=== PATIENT | female | born 1995 | race Caucasian/White ===

== ENCOUNTER 2022-08-30 10:21 | Outpatient (CLI) | payer OTHER, SELFPAY ==
[2022-08-30 11:00] LABS: Basophils Percent Auto 0.3 % (0.2-1.2); Eosinophils Absolute Auto 0.1 K/mm3 (0-0.3); Hematocrit 32.9 % (37.0-47.0); Hemoglobin 10.8 g/dL (12.0-15.0); Immature Granulocyte Absolute 0.08 K/mm3 (0.00-0.031); Immature Granulocyte Percent A 0.7 % (0-0.5); Lymphocytes Absolute Auto 1.57 K/mm3 (0.9-3.2); Lymphocytes Percent Auto 12.8 % (18.3-44.2); Mean Corpuscular HGB Conc 32.8 g/dl (32-36); Mean Corpuscular Hemoglobin 26.7 pg (26-34); Mean Corpuscular Volume 81.4 fl (80-100); Mean Platelet Volume 11.6 fl (7.4-10.4); Monocytes Absolute Auto 0.7 K/mm3 (0.1-0.6); Monocytes Percent Auto 5.6 % (2.6-8.5); Neutrophils Absolute Auto 9.7 K/mm3 (1.3-6.7); Neutrophils Percent Auto 79.6 % (45.5-73.1); Platelet Count Result 205 k/mm3 (150-375); Red Blood Count 4.04 M/mm3 (4.2-5.4); Red Cell Distribution Width 13.9 % (11.5-14.5); White Blood Count 12.2 K/mm3 (4.5-10.0)
[2022-08-30 11:01] VITALS: BP 127/77; PULSE 80
[2022-08-30 11:05] LABS: Creatinine Urine 32.5 mg/dL; Total Protein Urine Random 20 mg/dL; Ur Ttl Prot Creatinine Ratio 0.62 mg/mg (0-0.20)
[2022-08-30 11:11] LABS: Alanine Aminotransferase 20 U/L (6-35); Albumin Level 3.9 g/dL (3.5-5.1); Alkaline Phosphatase 233 U/L (38-126); Anion Gap 7 mmol/L (8-16); Aspartate Amino Transferase 24 U/L (14-36); Bilirubin,Total 0.4 mg/dL (0.2-1.3); Blood Urea Nitrogen 9 mg/dL (7-17); Calcium 9.2 mg/dL (8.4-10.2); Carbon Dioxide 21 mmol/L (22-30); Chloride 108 mmol/L (98-107); Estimated Glomerular Filt Rate > 60; Glucose 95 mg/dL (65-110); Potassium 3.9 mmol/L (3.4-5.0); Sodium 136 mmol/L (137-145); Uric Acid 3.7 mg/dL (2.5-7.5)
[2022-08-30 11:16] VITALS: BP 130/85; PULSE 81
[2022-08-30 11:31] VITALS: BP 130/85; PULSE 81
[2022-08-30 11:42] LABS: Appearance Urine Clear (Clear); Bacteria Urine Rare /hpf; Bilirubin Urine Negative (Negative); Blood Urine Negative (Negative); Color Urine Yellow (Yellow); Glucose Urine UA Negative (Negative); Ketones Urine Negative (Negative); Leukocyte Esterase Ur Trace LEU/UL (NEGATIVE); Need Manual Microscopic Reviewed; Nitrate Urine Negative (Negative); Non Pathogenic Casts 0-2; Protein Urine Negative (Negative); RBC Urine 0-2 /hpf (0-2); Specific Grav Ur 1.005 (1.001-1.035); Squamous Epithelial Cell Urine Few /hpf (Few); Urobilinogen Urine 0.2 mg/dL (<2.0); WBC Urine 0-5 /hpf (0-3); pH Urine 6.5 (5.0-9.0)
[2022-08-30 11:44] LABS: Add Urine Microscopic? YES
[2022-08-30 11:46] VITALS: BP 132/80; PULSE 75
[2022-08-30 12:01] VITALS: BP 129/72; PULSE 73
[2022-08-30 12:14] VITALS: BP 127/77; PULSE 87
== END 2022-08-30 12:20 | disposition home or self-care (01) ==
LOC: ANHOBOP 10:26 → ANHOBPP 10:30
PROVIDERS: PCP Hospitalist; Visit Provider Student in an Organized Health Care Education/Training Program
DX: O13.9 Gestational [pregnancy-induced] hypertension without significant proteinuria, unspecified trimester (principal); Z3A.00 Weeks of gestation of pregnancy not specified
CPT/HCPCS: 36415; 59025; 80053; 81001; 82570; 84156; 84550; 85025; 87086; 87088; 99199

== ENCOUNTER 2022-08-31 12:16 | Outpatient (NON) | payer OTHER, SELFPAY ==
[2022-08-31 12:35] LABS: Collection Time Urine 24 HOURS
[2022-08-31 12:44] LABS: Patient Weight 183 Lbs; Total Volume 24 Hour Urine 3700 ml
[2022-08-31 12:46] LABS: Specific Gravity Ur 1.012
[2022-08-31 12:49] LABS: Creatinine Clearance Urine 118.9 ml/min (75-125); Creatinine Urine 38.8 mg/dL; Total Protein Urine Random 18 mg/dL
[2022-08-31 12:51] LABS: Total Protein Urine 24 Hr 666 mg/24hr (28-141)
== END 2022-08-31 12:17 | disposition home or self-care (01) ==
PROVIDERS: PCP Hospitalist; Visit Provider Student in an Organized Health Care Education/Training Program
DX: O13.9 Gestational [pregnancy-induced] hypertension without significant proteinuria, unspecified trimester (principal); Z3A.00 Weeks of gestation of pregnancy not specified
CPT/HCPCS: 81050; 82575; 84156

== ENCOUNTER 2022-09-06 09:51 | Outpatient (RCR) | payer OTHER, SELFPAY ==
[2022-09-06 10:55] VITALS: BP 140/87; PULSE 70
[2022-09-06 11:01] LABS: Basophils Absolute Auto 0.1 K/mm3 (0.0-0.1); Basophils Percent Auto 0.4 % (0.2-1.2); Eosinophils Absolute Auto 0.1 K/mm3 (0-0.3); Hematocrit 33.1 % (37.0-47.0); Hemoglobin 10.7 g/dL (12.0-15.0); Immature Granulocyte Percent A 0.7 % (0-0.5); Lymphocytes Absolute Auto 1.62 K/mm3 (0.9-3.2); Lymphocytes Percent Auto 11.6 % (18.3-44.2); Mean Corpuscular HGB Conc 32.3 g/dl (32-36); Mean Corpuscular Volume 83.6 fl (80-100); Mean Platelet Volume 12.3 fl (7.4-10.4); Monocytes Absolute Auto 0.5 K/mm3 (0.1-0.6); Monocytes Percent Auto 3.3 % (2.6-8.5); Neutrophils Absolute Auto 11.7 K/mm3 (1.3-6.7); Platelet Count Result 203 k/mm3 (150-375); Red Blood Count 3.96 M/mm3 (4.2-5.4); Red Cell Distribution Width 14.1 % (11.5-14.5)
[2022-09-06 11:05] LABS: Alanine Aminotransferase 20 U/L (6-35); Albumin Level 3.6 g/dL (3.5-5.1); Alkaline Phosphatase 231 U/L (38-126); Anion Gap 8 mmol/L (8-16); Aspartate Amino Transferase 21 U/L (14-36); Bilirubin,Total 0.4 mg/dL (0.2-1.3); Blood Urea Nitrogen 12 mg/dL (7-17); Calcium 9.1 mg/dL (8.4-10.2); Carbon Dioxide 20 mmol/L (22-30); Chloride 104 mmol/L (98-107); Estimated Glomerular Filt Rate > 60; Glucose 99 mg/dL (65-110); Potassium 3.9 mmol/L (3.4-5.0); Sodium 132 mmol/L (137-145); Uric Acid 3.9 mg/dL (2.5-7.5)
[2022-09-06 11:16] LABS: Appearance Urine Clear (Clear); Bilirubin Urine Negative (Negative); Blood Urine Negative (Negative); Color Urine Yellow (Yellow); Glucose Urine UA Negative (Negative); Ketones Urine Negative (Negative); Leukocyte Esterase Ur Negative LEU/UL (NEGATIVE); Nitrate Urine Negative (Negative); Protein Urine Negative (Negative); Specific Grav Ur 1.003 (1.001-1.035); Urobilinogen Urine 0.2 mg/dL (<2.0); pH Urine 6.5 (5.0-9.0)
[2022-09-06 11:30] LABS: Creatinine Urine 17.4 mg/dL; Total Protein Urine Random 18 mg/dL; Ur Ttl Prot Creatinine Ratio 1.03 mg/mg (0-0.20)
[2022-09-06 11:36] LABS: Add Urine Microscopic? NO
--- NOTE | 2022-09-06 12:59 | PC.NURSE ---
Spoke with Dr. Collier at 1224 on the phone regarding patient's updated lab values. Dr. Collier came over to OB unit to talk with patient in person. Patient is an add on induction for 09/07/22 at 1600. Patient has no questions at this time and is content with being discharged until her induction tomorrow. Patient educated on signs and symptoms that require her to return to L&D unit sooner than her scheduled induction.
== END 2022-11-05 17:45 | disposition home or self-care (01) ==
LOC: ANHOBOP 09:51
PROVIDERS: PCP Hospitalist; Visit Provider Student in an Organized Health Care Education/Training Program
DX: O26.893 Other specified pregnancy related conditions, third trimester (principal); R03.0 Elevated blood-pressure reading, without diagnosis of hypertension; Z3A.38 38 weeks gestation of pregnancy
CPT/HCPCS: 36415; 59025; 80053; 81003; 82570; 84156; 84550; 85025; 87086

== ENCOUNTER 2022-09-07 16:03 | Inpatient (IN) | payer OTHER, SELFPAY ==
[2022-09-07] VITALS (25 sets, daily range): BP systolic 119–151; BP diastolic 63–104; PULSE 67–94; BMI 34.9
--- NOTE | 2022-09-07 16:22 | LDADM ---
This patient, Rosaline Benedict, was admitted to Labor/Delivery/Recovery 102 on 09/07/22 at 16:03. Plans for labor, pain management and were discussed with patient. Patient/family oriented to hospital policies and general routines including ID bracelet, bed and alarms, visiting hours, pain management, procedures, bathroom and other care routines, personal items, smoking policy, room service/diet and guest tray routines, security routines, and visiting hours. Patient/Family are encouraged to report perceived risks to care and to ask questions if they do not understand what they are told or what they should do. See OBIX for further documentation.
[2022-09-07 16:40] LABS: Basophils Percent Auto 0.3 % (0.2-1.2); Eosinophils Absolute Auto 0.1 K/mm3 (0-0.3); Hematocrit 31.8 % (37.0-47.0); Hemoglobin 10.5 g/dL (12.0-15.0); Immature Granulocyte Absolute 0.08 K/mm3 (0.00-0.031); Immature Granulocyte Percent A 0.6 % (0-0.5); Lymphocytes Percent Auto 12.8 % (18.3-44.2); Mean Corpuscular Hemoglobin 26.8 pg (26-34); Mean Corpuscular Volume 81.1 fl (80-100); Mean Platelet Volume 12.2 fl (7.4-10.4); Monocytes Absolute Auto 0.8 K/mm3 (0.1-0.6); Monocytes Percent Auto 5.7 % (2.6-8.5); Neutrophils Absolute Auto 10.5 K/mm3 (1.3-6.7); Neutrophils Percent Auto 79.6 % (45.5-73.1); Platelet Count Result 221 k/mm3 (150-375); Red Blood Count 3.92 M/mm3 (4.2-5.4); Red Cell Distribution Width 14.2 % (11.5-14.5); White Blood Count 13.2 K/mm3 (4.5-10.0)
[2022-09-08] VITALS (206 sets, daily range): BP systolic 94–164; BP diastolic 54–124; PULSE 58–165; TEMP 36.2–37.1; O2SAT 90–98
[2022-09-08] MEDS: OXYTOCIN 30 UNITS/NS 500 ML 30 UNITS/500 ML BAG IV CONT (00:56)
[2022-09-08] MEDS: LACTATED RINGERS 1,000 ML 125 ML IV CONT ×3 (00:57→18:44)
--- NOTE | 2022-09-08 07:23 | WPDANESEPP ---
Anes - Eval Pre Procedure Procedure: labor epidural Date/Time: 09/08/22 07:23 Preop Diagnosis: labor pain Pre Op Diagnosis: Induction of Labor Patient Data Age: 27 Gender: F Height: 1.55 m Weight: 84 kg Last Vital Signs Temp 36.4 C 09/08/22 07:10 Pulse 80 09/08/22 07:18 BP 159/99 H 09/08/22 07:18 O2 Del Method Room Air 09/07/22 16:20 Allergies Allergy/AdvReac Type Severity Reaction Status Date / Time No Known Allergies Allergy Verified 09/06/22 09:06 Home Medications Medication Instructions Recorded Confirmed Type cholecalciferol (vitamin D3) 125 125 mcg PO DAILY 02/24/22 07/12/22 History mcg (5,000 unit) capsule prenat.vits,brenda,[id number] 1 tablet PO DAILY 04/22/22 07/12/22 History magnesium 200 mg tablet 200 mg PO DAILY 05/24/22 07/12/22 History Laboratory Tests 09/07/22 09/07/22 09/07/22 16:13 16:13 16:13 WBC 13.2 K/mm3 H K/mm3 (4.5-10.0) RBC 3.92 M/mm3 L M/mm3 (4.2-5.4) Hgb 10.5 g/dL L g/dL (12.0-15.0) Hct 31.8 % L % (37.0-47.0) MCV 81.1 fl fl (80-100) MCH 26.8 pg pg (26-34) MCHC 33.0 g/dl g/dl (32-36) RDW 14.2 % % (11.5-14.5) Plt Count 221 k/mm3 k/mm3 (150-375) MPV 12.2 fl H fl (7.4-10.4) Immature Gran % (Auto) 0.6 % H % (0-0.5) Neut % (Auto) 79.6 % H % (45.5-73.1) Lymph % (Auto) 12.8 % L % (18.3-44.2) [place] % (Auto) 5.7 % % (2.6-8.5) Eos % (Auto) 1.0 % % (0-4.4) Baso % (Auto) 0.3 % % (0.2-1.2) Lymph # (Auto) 1.70 K/mm3 K/mm3 (0.9-3.2) [place] # (Auto) 0.8 K/mm3 H K/mm3 (0.1-0.6) Eos # (Auto) 0.1 K/mm3 K/mm3 (0-0.3) Baso # (Auto) 0.0 K/mm3 K/mm3 (0.0-0.1) Abs Immat Gran (auto) 0.08 K/mm3 H K/mm3 (0.00-0.031) Absolute Neuts (auto) 10.5 K/mm3 H K/mm3 (1.3-6.7) Absolute Nucleated RBC 0.0 K/mm3 K/mm3 (0.0-0.012) Nucleated RBC % 0.0 % % (0.0-0.2) RPR Pending Blood Type O Positive Antibody Screen Negative Patient hx anesthesia problems: none Family hx anesthesia problems: none Results Review: All pre-operative results and documents have been reviewed as part of the pre-operative evaluation. COUNT INCLUDES [facility] Surgical History Surgical History [place] teeth removed Family History Family History Grandparent Breast cancer Hypertension Mother Acute Crohn's disease Brain tumor Adhesions due to endometriosis Hypertension Seizures Grandparent Mouth cancer Social History Social History Smoking status: Never smoker Alcohol intake: never Substance use: never Substance use type: does not use Lack of Transportation: No Lack of Food: Never True Current Housing: I Have Housing Concerned About Future Housing: No Difficulty Paying Gas/Electric Bills: No Difficulty Paying for Meds: No Currently Unemployed: No Education: Bachelor's Degree Difficulty w/ Childcare or Family Care: No Living arrangements: with family Occupation/Education: occupation Additional occupation/education comments: [employer] Gender identity (if verbalized by the patient): Female Sexual Orientation (if Verbalized by the Patient): Straight or Heterosexual Spiritual care concerns: No Exam Day of Procedure 09/08/22 07:23 Patient weight: normal Heart: regular rate and rhythm Lungs: clear to auscultation and normal air movement Airway: Mallampati scale Neurological: alert and oriented
--- NOTE | 2022-09-08 08:07 | WPDHPUPDATE1 ---
History and Physical Update Update Date/Time: 09/08/22 08:07 27-year-old G1 at 38 weeks and 3 days who presents for induction of labor for preeclampsia. Patient had mildly elevated blood pressures. Of lab work showed elevated proteinuria. Who History and Physical has been reviewed, including an updated exam of the patient. There are NO changes in the patient's condition. Risks, benefits, and alternatives have been discussed and questions answered. Patient agrees to proceed with procedure. A/P: admit to L&D Routine admission orders PIH labs collected and Rh positive GBS negative Cervix found to be 2/50/ -3 at the time of admission, will plan for Pitocin augmentation continuous external monitoring will monitor blood pressures, will consider magnesium if severe range
[2022-09-08 08:13] LABS: Rapid Plasma Reagin Non-Reactive (NonReactive)
[2022-09-08] MEDS: ONDANSETRON INJ 4 MG/2 ML VIAL IV PUSH (18:42)
--- NOTE | 2022-09-08 23:10 | PM.OBPNLAB ---
Pain Control Date/time seen: 09/08/22 23:10 Pain control: epidural Comments: Pt has been complete and pushing for over 3 hours. Pt states she is becoming tired. Pelvic Exam Dilation (cm): 10 Effacement (%): 100 station: 0 Amniotic membrane status: Ruptured Contractions Monitor mode: Internal Contraction pattern: Regular Status status: Category l Assessment and Plan Assessment: induction ongoing Plan: Comments: Pt has been complete and pushing for over 3 hrs with little descent. The bony fetus skull was noted to still be at 0 station. There was a moderate amount of caput with pushing. plan of care discussed with patient and FOB. Given prolonged second stage of labor, discussed recommendations for . risks, benefits, alternatives to discussed. Pt was agreeable to proceeding with for prolonged second stage of labor.
[2022-09-09] VITALS (47 sets, daily range): BP systolic 126–147; BP diastolic 65–92; PULSE 87–128; RESP 14–18; TEMP 36.6–37.9; O2SAT 93–100
[2022-09-09] MEDS: ceFAZolin 2 GM/D5W 50 ML 2 GM/50 ML BAG IVPB
[2022-09-09] MEDS: ONDANSETRON INJ 4 MG/2 ML VIAL IV PUSH (00:20)
[2022-09-09] MEDS: LACTATED RINGERS 1,000 ML 125 ML IV CONT (00:20)
--- NOTE | 2022-09-09 00:47 | W.PM.PROC2 ---
Procedure Note - Detailed Date of Procedure 09/09/22 Pre-op Diagnosis Induction of Labor for preeclampsia prolonged second stage of labor Post-op Diagnosis Same Procedure Performed low transverse section Surgeon Jaquan Collier MD Anesthesia Spinal and Epidural Description of Procedure The patient was taken to the operating room. A combined spinal epidural anesthesic was administered and found to be adequate at a t-10 level. The patient was placed in a supine position with a slight left lateral tilt. A velasquez catheter was placed with return of clear urine. A Bovie grounding pad was placed. Surgical prep was performed and surgical drapes were placed. A surgical time out was performed. A Pfannenstiel skin incision was then made with the scalpel and carried through to the underlying layer of fascia. The fascia was then incised in the midline and the incision was extended laterally with the Pizarro scissors. The superior aspect of the fascia was then grasped with the Cisco clamps, elevated, and the underlying rectus muscles dissected off bluntly and sharply. Attention was then turned to the inferior aspect of this incision which, in a similar fashion, was grasped, tented up with the Cisco clamps, and the rectus muscles dissected off both bluntly and sharply. The rectus muscles were then in the midline. The peritoneum was identified and entered bluntly. The peritoneal incision was then extended superiorly and inferiorly with good visualization of the bladder. The vesico-uterine serosa was identified and dissected to create a bladder flap. The bladder blade was reinserted. The uterus was inspected for rotation. A low-transverse uterine incision was made sharply with the scalpel and entry was made into the uterine cavity. An amniotomy was made and copious amounts of meconium fluid was noted on return. The uterine incision was extended laterally bluntly. The head was brought to the level of the hysterotomy. Delivery of the fetus was noted to be obstructed by the rectus muscles. A Maylard incision was made to the right rectus belly. The fetus was then delivered atraumatically. A large amount of caput was noted on delivery with severe moulding. The umbilical cord was clamped twice and cut. The infant was handed off to the waiting staff. The cried with minimal stimulation. A second segment of umbilical cord was clamped and cut for cord blood gasses. Cord blood was collected for determination of the blood type and for direct Nam. The placenta was delivered spontaneously without difficulty. The placenta appeared grossly normal and complete. The uterus was exteriorized and cleared of all clots and debris. The uterine incision was repaired using 0-monocryl suture in a running fashion. A second layer of 0 Monocryl suture was used in an imbricating fashion to obtain excellent hemostasis and uterine strength. The uterine closure was inspected for hemostasis. The posterior aspect of the uterus and the broad ligaments were inspected and the posterior cul-de-sac cleared of fluid and blood clots. The uterine closure was again inspected and found to be hemostatic. The uterus was returned to the abdominal cavity. The pericolic gutters were inspected and were cleared of all blood clots and debris. The uterine closure was then re inspected to ensure hemostasis as were all subfascial tissues. The right rectus belly was re-approximated with 0-vicryl in a series of mattress sutures. The peritoneum was closed using 3-0 vicryl in a running fashion. The fascia was reapproximated with 0-vicryl in a running fashion. The subcutaneous tissue was irrigated and hemostasis achieved with electrocautery. It was reapproximated with 3-0 vicryl in a interrupted fashion. The skin was closed with 4-0 vicryl in a subcuticular fashion. A sterile dressing was applied to the wound. The patient tolerated the procedure well. Sponge, lap and needle counts were correct times t
[2022-09-09] MEDS: DEXTROSE 5%/0.45% SOD CHL 1,000 ML 125 ML IV CONT (03:50)
[2022-09-09] MEDS: DOCUSATE SODIUM 100 MG CAPSULE PO ×2 (09:33→16:19)
--- NOTE | 2022-09-09 10:25 | PC.NURSE ---
Breast pump provided due to separation from infant. Instructions given on cleaning, care, usage, that there should be no pain, pumping schedule for milk production, collection, and storage of human milk. Parents are encouraged to record pumping schedule on the feeding sheet. Patient was assessed for correct placement, flange size, to pump for comfort and nipple stretching/stimulation for adequate milk production every 3 hours (8 times in 24 hours) 1-2 times at night. Mother voiced understanding.
[2022-09-09] MEDS: KETOROLAC 30 MG/ML VIAL (*BKC) IV PUSH (12:35)
--- NOTE | 2022-09-09 13:02 | P.PNOB_ITS ---
OB - PN: Subj Subjective Date/time seen: 09/09/22 13:02 Patient comments: no complaints, pain well controlled and tolerating diet baby status: NICU Narrative: 27-year-old postop day 1 from primary for prolonged 2nd stage. Patient doing well postop day 1. Patient states pain is controlled on medications. Patient is ambulating up to chair. Patient denies any excess bleeding. Patient is tolerating p.o.. Patient's baby was transferred for traumatic injury resulting in skull fracture. Mother and family present in the room today. All appropriately grieving. Father baby is currently visiting with baby at [facility]. No updates on the condition of baby. OB - PN: Obj Data Labs 09/07/22 16:13 OB - PN A/P Assessment and Plan (1) Preeclampsia: Code(s): O14.90 - Unspecified pre-eclampsia, unspecified trimester Status: Acute Assessment and Plan: blood pressures remained mild range Will continue to monitor urine output Will continue to monitor blood pressures Plan day: 1 Plan: routine care Comments: patient doing well H/H stable afebrile, Mild range blood pressure incision C/D/I velasquez removed, voiding spontaneously fetus was transferred to [facility] after traumatic injury resulting in skull fracture. Patient family grieving appropriately. Discussed at length. Express concerns for CPD. Recommended patient to avoid TOLAC in the future. All questions answered regarding delivery. Will continue to monitor on updates of status recommended patient get some rest after a long night. If patient's clinical status remains stable, would consider a day past to visit her baby at the [facility]. continue routine post op care Time Spent With Patient Time: Total time spent is greater than 50% in coordination of care (as documented) at patient's floor/unit and/or counseling patient: Time with patient: less than 15 minutes Review of Systems Constitutional: Constitutional: Reports no additional constitutional complaints Cardiovascular: Cardiovascular: Reports no additional cardiovascular complaints Respiratory: Respiratory: Reports no additional respiratory complaints Gastrointestinal: Gastrointestinal: Reports no additional gastrointestinal complaints Genitourinary: Genitourinary: Reports no additional female genitourinary complaints Exam Const: General: comfortable and no acute distress Resp: Effort & Inspection: normal respiratory effort Auscultation: clear to auscultation bilaterally Cardio: Rate: regular rate GI: GI Palp: Yes Soft to palpation, Yes Tenderness to palpation present (GI) (around incision ) and No Guarding due to palpation present (GI) Auscultation: normal bowel sounds Other: incision C/D/I, covered with Dermabond Psych: Appearance: grossly normal Mental Status: mental status grossly normal Affect: normal affect
[2022-09-09] MEDS: HYDROcodone/acetaminophen (*CRX) 5-325 MG TABLET 1 TAB PO ×2 (16:20→22:24)
[2022-09-10] MEDS: HYDROcodone/acetaminophen (*CRX) 5-325 MG TABLET 1 TAB PO ×4 (02:51→19:39)
[2022-09-10 03:09] LABS: Basophils Absolute Auto 0.1 K/mm3 (0.0-0.1); Basophils Percent Auto 0.3 % (0.2-1.2); Eosinophils Absolute Auto 0.2 K/mm3 (0-0.3); Eosinophils Percent Auto 1.1 % (0-4.4); Hematocrit 27.1 % (37.0-47.0); Hemoglobin 8.3 g/dL (12.0-15.0); Immature Granulocyte Absolute 0.12 K/mm3 (0.00-0.031); Immature Granulocyte Percent A 0.7 % (0-0.5); Lymphocytes Absolute Auto 2.02 K/mm3 (0.9-3.2); Lymphocytes Percent Auto 12.5 % (18.3-44.2); Mean Corpuscular HGB Conc 30.6 g/dl (32-36); Mean Corpuscular Hemoglobin 26.9 pg (26-34); Mean Platelet Volume 11.8 fl (7.4-10.4); Neutrophils Absolute Auto 12.8 K/mm3 (1.3-6.7); Neutrophils Percent Auto 79.4 % (45.5-73.1); Platelet Count Result 183 k/mm3 (150-375); Red Blood Count 3.08 M/mm3 (4.2-5.4); Red Cell Distribution Width 14.8 % (11.5-14.5); White Blood Count 16.1 K/mm3 (4.5-10.0)
[2022-09-10] MEDS: DOCUSATE SODIUM 100 MG CAPSULE PO ×2 (07:17→19:38)
[2022-09-10] MEDS: POLYSACCHARIDE IRON COMPLEX 150 MG CAPSULE PO ×2 (07:17→19:38)
--- NOTE | 2022-09-10 07:17 | WPDANLDPN2 ---
Anes-Prog Note L&D Date/Time: 09/10/22 07:17 Comfortable throughout: labor and delivery Neuraxial method: epidural Epidural/Spinal procedure site: clean & non-tender Neuro status: Neuro function grossly intact. Cardiovascular status: normal Respiratory status: normal Airway patency: baseline Mental status: baseline Post-Op hydration status: normal Vital Signs: Last Vital Signs Temp 36.6 C 09/09/22 19:14 Pulse 94 09/09/22 19:14 Resp 16 09/09/22 19:14 BP 126/92 H 09/09/22 19:14 Pulse Ox 98 09/09/22 12:37 O2 Del Method Room Air 09/09/22 12:00 Pain score (VAS): 2 I/O: Intake & Output 09/09/22 09/09/22 09/10/22 15:59 23:59 07:59 Intake Total 1300 500 Output Total 575 400 Balance 725 100 Post-procedural complaints: none Patient feedback: Patient satisfied with anesthetic care.
--- NOTE | 2022-09-10 07:44 | WPDANLDNPN2 ---
Anes-Prog Note L&D-Neuraxial Date/Time: 09/10/22 07:44 Neuraxial medications: epidural PF morphine Opiod-related complaints: none Patient feedback: Patient satisfied with post-operative pain management.
[2022-09-10 09:05] VITALS: BP 140/90; PULSE 104; RESP 16; TEMP 37; O2SAT 97
[2022-09-10 14:30] VITALS: BP 140/91; PULSE 110; RESP 18; TEMP 36.7; O2SAT 98
[2022-09-10 19:30] VITALS: BP 145/87; PULSE 100; RESP 16; TEMP 36.8; O2SAT 98
[2022-09-11] MEDS: HYDROcodone/acetaminophen (*CRX) 5-325 MG TABLET 1 TAB PO ×2 (02:02→07:13)
[2022-09-11] MEDS: DOCUSATE SODIUM 100 MG CAPSULE PO (07:13)
[2022-09-11 07:15] VITALS: BP 132/86; PULSE 110; RESP 18; TEMP 36.7
[2022-09-11] MEDS: POLYSACCHARIDE IRON COMPLEX 150 MG CAPSULE PO (07:15)
--- NOTE | 2022-09-11 07:51 | PM.OBDSVD ---
DS: Admitting Diagnosis Discharge Date 09/11/22 Admitting Diagnosis intrauterine at term preeclampsia OB - DS: Summary Hospital Course Hospital Course: 27 yo G1 who presented for IOL for preeclampsia. Cervix progressed to complete dilation. Pt required primary due to prolonged second stage with failure to descent. The fetus required transfer to [facility] due to concerns for subgaleal hematoma. The patient's course was uncomplicated. OB Procedures : None OB Procedures Intrapartum: OB Procedures: : None Peripartum Data Delivery Method: Section Procedures: Procedures Operation Date: 09/08/22 23:20 Actual Procedure Side Surgeon p Section Jaquan Collier MD complications: none Status at Discharge Functional status at discharge: independent ambulation Overall status at discharge: patient is progressing back to baseline Time Spent with Patient Time attestation: Total time spent providing and/or coordinating discharge services: Time spent: Less than 30 minutes Exam Const: General: comfortable and no acute distress Resp: Effort & Inspection: normal respiratory effort Auscultation: clear to auscultation bilaterally Cardio: Rate: regular rate GI: Inspection: non-distended GI Palp: Yes Soft to palpation, No Firmness to palpation present (GI), Yes Tenderness to palpation present (GI) (mild tenderness over incision ) and No Guarding due to palpation present (GI) Auscultation: normal bowel sounds Psych: Appearance: grossly normal Mental Status: mental status grossly normal Discharge Plan Discharge Discharging Clinician: Jaquan Collier Patient Disposition: Home, Self-Care Activity: as tolerated and pelvic rest Diet: regular Patient Instructions: Antibiotic Form, Preeclampsia and Eclampsia After Delivery (GEN), (DC) Stand Alone Forms: General Discharge Information Follow-up/Referrals: Jaquan Collier MD [Physician] - 1 Week Discharge Medications: New oxycodone-acetaminophen 5-325 mg tablet 1 tablet PO Q6H PRN (Reason: pain) Qty: 28 0RF ibuprofen 600 mg tablet 600 mg PO Q6H PRN (Reason: pain) Qty: 30 0RF Continued cholecalciferol (vitamin D3) 125 mcg (5,000 unit) capsule 125 mcg PO DAILY prenat.vits,brenda,deq-[id number] Tablet 1 tablet PO DAILY magnesium 200 mg tablet 200 mg PO DAILY Date of admission: 09/07/22 16:03 Primary Care Provider: Taco,Sharla High Admitting Provider: Jaquan Collier Attending physician on admission: Jaquan Collier Condition: Stable
[2022-09-13 08:20] VITALS: BP 143/83; PULSE 73; RESP 18; TEMP 37.1; O2SAT 98
--- NOTE | 2022-09-13 16:30 | PM.IMHP ---
H&P: HPI History of Present Illness Date/Time: 09/13/22 16:30 Chief Complaint: intrauterine at term Preeclampsia Narrative: 27-year-old G1 who presents at 38 weeks 3 days for induction of labor for preeclampsia Review of Systems Cardiovascular: Cardiovascular: Denies chest pain, Denies leg edema, Denies palpitations, Denies dyspnea and Denies dyspnea on exertion Respiratory: Respiratory: Denies cough, Denies dyspnea and Denies dyspnea on exertion Gastrointestinal: Gastrointestinal: Denies abdominal pain, Denies constipation, Denies diarrhea, Denies nausea and Denies vomiting Genitourinary: Genitourinary: Denies hematuria, Denies urinary frequency, Denies dysuria, Denies pelvic pain, Denies urinary incontinence and Denies vaginal discharge Neurologic: Reports system reviewed and no additional complaints, except as documented Psychiatric: Psychiatric: Reports no additional psychiatric complaints Endocrine: Endocrine: Denies palpitations PMFSH Surgical History Surgical History [place] teeth removed Family History Family History Grandparent Breast cancer Hypertension Mother Acute Crohn's disease Brain tumor Adhesions due to endometriosis Hypertension Seizures Grandparent Mouth cancer Social History Social History Smoking status: Never smoker Alcohol intake: never Substance use: never Substance use type: does not use Lack of Transportation: No Lack of Food: Never True Current Housing: I Have Housing Concerned About Future Housing: No Difficulty Paying Gas/Electric Bills: No Difficulty Paying for Meds: No Currently Unemployed: No Education: Bachelor's Degree Difficulty w/ Childcare or Family Care: No Living arrangements: with family Occupation/Education: occupation 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 Gender identity (if verbalized by the patient): Female Sexual Orientation (if Verbalized by the Patient): Straight or Heterosexual Spiritual care concerns: No Meds Home Medications and Allergies Home Medications Medication Instructions Recorded Confirmed Type cholecalciferol (vitamin D3) 125 125 mcg PO DAILY 02/24/22 07/12/22 History mcg (5,000 unit) capsule prenat.vits,brenda,emh-xxmv-mvorw 1 tablet PO DAILY 04/22/22 07/12/22 History magnesium 200 mg tablet 200 mg PO DAILY 05/24/22 07/12/22 History ibuprofen 600 mg tablet 600 mg PO Q6H PRN pain #30 tabs 09/11/22 Rx oxycodone-acetaminophen 5 mg-325 1 tablet PO Q6H PRN pain #28 tabs 09/11/22 Rx mg tablet Allergies Allergy/AdvReac Type Severity Reaction Status Date / Time No Known Allergies Allergy Verified 09/06/22 09:06 Vital Signs Vital Signs - 24 hr 09/13/22 08:20 Temperature 98.8 F Pulse Rate 73 Respiratory Rate 18 Blood Pressure 143/83 H Pulse Oximetry 98 Exam Const: General: no acute distress Eyes: EOM: EOMs intact bilaterally Neck: Neck: supple Thyroid: thyroid normal Chest: Breast/axilla inspection: normal inspection of the breasts Breast/axilla palpation: normal palpation of the breasts, normal palpation of the axillae and no axillary lymphadenopathy Resp: Effort & Inspection: normal respiratory effort Auscultation: clear to auscultation bilaterally Cardio: Rate: regular rate Rhythm: regular rhythm GI: Inspection: non-distended and other (Gravid) GI Palp: Yes Soft to palpation, No Tenderness to palpation present (GI) and No Guarding due to palpation present (GI) Auscultation: normal bowel sounds : Speculum Exam - Vagina: No vaginal bleeding OB/external & speculum: external exam normal; No vaginal bleeding Skin: General skin exam: normal color and no rashes or lesions noted Neuro: Cognition (Neuro): normal cognition Speech: normal speech Extrem: Gener
== END 2022-09-11 11:25 | disposition home or self-care (01) | DRG 788 ==
LOC: ANHLDR 09-08 08:22 → ANHOB2 09-09 04:20
PROVIDERS: Admitting Provider Student in an Organized Health Care Education/Training Program; PCP Hospitalist; Visit Provider Student in an Organized Health Care Education/Training Program
PROC: 10907ZC Drainage of Amniotic Fluid, Therapeutic from Products of Conception, Via Natural or Artificial Opening (ICD-10-PCS; CPT 59514; principal; 2022-09-08 23:20)
DX: O63.1 Prolonged second stage (of labor) (principal); O14.94 Unspecified pre-eclampsia, complicating childbirth; O77.0 Labor and delivery complicated by meconium in amniotic fluid; Z3A.38 38 weeks gestation of pregnancy; Z37.0 Single live birth
CPT/HCPCS: 36415; 85025; 86592; 86850; 86900; 86901; A9270; J0456; J0690; J1885; J2175; J2274; J2405; J2590; J2795; J7120

== ENCOUNTER 2022-12-11 11:17 | Emergency (ER) | payer OTHER, SELFPAY ==
--- NOTE | ~2022-12-11 | XR_ITS ---
EXAMINATION: XR ankle LT min 3V DATE: 12/11/2022 11:46 INDICATION: Left ankle injury and pain. TECHNIQUE: 4 views of left ankle were obtained. COMPARISON: None. FINDINGS: Bone alignment is normal. No fracture. Joint spaces are well maintained. There is lateral a nkle soft tissue swelling. IMPRESSION: 1. No fracture. Reviewed, dictated and finalized at location A. IMPRESSION: 1. No fracture.
[2022-12-11 11:29] VITALS: BP 128/58; PULSE 85; RESP 16; TEMP 36.2; O2SAT 98
--- NOTE | 2022-12-11 12:00 | ED.LOWEXIN ---
HPI - Extremity Injury (Lower) General Chief Complaint: Extremity Injury, Lower Stated Complaint: left ankle injury Time Seen by Provider: 12/11/22 11:42 History of Present Illness HPI Narrative: Patient is a 27-year-old female presenting with left ankle pain. Patient states that she was walking in her yard when she twisted her left ankle. States that she fell to the ground. Did not strike her head or lose consciousness. States that she called out for her who helped her to the car. States that she has not tried to ambulate on it. She has not taken anything for pain. She is concerned that she broke the ankle. Denies further complaints or concerns. Related Data Home Medications Medication Instructions Recorded Confirmed cholecalciferol (vitamin D3) 125 125 mcg PO DAILY 02/24/22 07/12/22 mcg (5,000 unit) capsule prenat.vits,brenda,[id number] 1 tablet PO DAILY 04/22/22 07/12/22 magnesium 200 mg tablet 200 mg PO DAILY 05/24/22 07/12/22 Allergies Allergy/AdvReac Type Severity Reaction Status Date / Time No Known Allergies Allergy Verified 10/06/22 10:57 Review of Systems Review of Systems: All systems reviewed & are unremarkable except as noted in HPI and below PMFSH Surgical History Surgical History History of delivery [place] teeth removed Family History Family History Grandparent Breast cancer Hypertension Mother Acute Crohn's disease Brain tumor Adhesions due to endometriosis Hypertension Seizures Grandparent Mouth cancer Social History Social History Smoking status: Never smoker Alcohol intake: never Substance use: never Substance use type: does not use Lack of Transportation: No Lack of Food: Never True Current Housing: I Have Housing Concerned About Future Housing: No Difficulty Paying Gas/Electric Bills: No Difficulty Paying for Meds: No Currently Unemployed: No Education: Bachelor's Degree Difficulty w/ Childcare or Family Care: No Living arrangements: with family Occupation/Education: occupation 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 Pleasant and cooperative HEAD: Normocephalic, atraumatic. EYES: PERRLA and EOMI. ENT: Nares clear, no rhinorrhea or epistaxis NECK: Supple. CHEST: No respiratory distress. HEART: Regular rate and rhythm. ABDOMEN: Soft, nontender, nondistended EXTREMITIES: Normal range of motion. swelling over left lateral malleolus, no bruising or erythema, ROM intact though painful, DP/PT pulses are 2+, no sensory deficits SKIN: Warm, dry, no rash. NEURO: No focal deficits. Alert and oriented x3. PSYCH: Normal mood and affect. Course Vital Signs Vital signs: Vital Signs Temperature 97.1 F L 12/11/22 11:29 Pulse Rate 85 12/11/22 11:29 Respiratory Rate 16 12/11/22 11:29 Blood Pressure 128/58 L 12/11/22 11:29 Pulse Oximetry 98 12/11/22 11:29 Oxygen Delivery Room Air 12/11/22 11:29 Temperature 97.1 F L 12/11/22 11:29 Pulse Rate 85 12/11/22 11:29 Respiratory Rate 16 12/11/22 11:29 Blood Pressure 128/58 L 12/11/22 11:29 Pulse Oximetry 98 12/11/22 11:29 Oxygen Delivery Room Air 12/11/22 11:29 MDM - Extremity Injury (Lower) MDM Narrative Medical decision making narrative: Patient is a 27-year-old female presenting with left ankle pain after a fall. Vitals within normal limits. Exam remarkable for the above. X-ray reveals no fractures. Patient's ankle wrapped with an Franky wrap and patient was provided crutches to remain nonweightbear
== END 2022-12-11 12:18 | disposition home or self-care (01) ==
PROVIDERS: Emergency Provider Emergency Medicine; PCP Hospitalist
DX: S93.402A Sprain of unspecified ligament of left ankle, initial encounter (principal); S96.912A Strain of unspecified muscle and tendon at ankle and foot level, left foot, initial encounter; X50.0XXA Overexertion from strenuous movement or load, initial encounter
CPT/HCPCS: 73610; 99283

== ENCOUNTER 2024-06-12 16:11 | Emergency (ER) | payer OTHER, SELFPAY ==
--- NOTE | 2024-06-12 16:14 | ED_ITS ---
HPI - General Adult General Chief complaint: Upper Respiratory Infection Stated complaint: COUGH/SOB/LIGHT HEADED/ Time Seen by Provider: 06/12/24 16:30 Source: patient, RN notes reviewed and old records reviewed Mode of arrival: ambulatory Limitations: no limitations History of Present Illness HPI narrative: 29-year-old female presents to the [facility] with complaints of being lightheaded, cough, shortness of breath. Patient reports that she is , 13-14 weeks, with twins son recently diagnosed with both RSV and influenza a. Has not taken anything for her symptoms Related Data Home Medications ?Medication ?Instructions ?Recorded ?Confirmed ?Last Taken ?Type cholecalciferol (vitamin D3) 125 125 mcg PO DAILY 02/24/22 07/12/22 08/21/22 10:00 History mcg (5,000 unit) capsule prenat.vits,brenda,[id number] 1 tablet PO DAILY 04/22/22 07/12/22 08/21/22 10:00 History Allergies Allergy/AdvReac Type Severity Reaction Status Date / Time No Known Allergies Allergy Verified 06/12/24 16:21 Review of Systems Review of Systems: All systems reviewed & are unremarkable except as noted in HPI and below Constitutional: Constitutional: Reports no additional constitutional complaints ENT: Reports system reviewed and no additional complaints, except as documented Cardiovascular: Cardiovascular: Reports no additional cardiovascular complaints, Denies chest pain and Denies dyspnea Respiratory: Respiratory: Reports no additional respiratory complaints, Denies chest congestion, Denies cough and Denies dyspnea Musculoskeletal: Musculoskeletal: Reports no additional musculoskeletal complaints Integumentary/Breasts: Skin/Breast: Reports system reviewed and no additional complaints, except as docu PMFSH Surgical History Surgical History History of delivery [place] teeth removed Family History Family History Grandparent Breast cancer Hypertension Mother Acute Crohn's disease Brain tumor Adhesions due to endometriosis Hypertension Seizures Grandparent Mouth cancer Social History Social History Smoking status: Never smoker Alcohol intake: never Substance use: never Substance use type: does not use Lack of Transportation: No Lack of Food: Never True Current Housing: I Have Housing Concerned About Future Housing: No Difficulty Paying Gas/Electric Bills: No Difficulty Paying for Meds: No Currently Unemployed: No Education: Bachelor's Degree Difficulty w/ Childcare or Family Care: No Living arrangements: with family Occupation/Education: occupation 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 There is no relevant family history pertinent to the patient complaint. Exam Const: General: cooperative, healthy appearing, no acute distress, well developed, alert, uncomfortable and well nourished Nutritional Appearance: well nourished Orientation/consciousness: patient oriented x3 Limitations: no limitations HENMT: Head: normal to inspection Ears: hearing grossly normal bilaterally, external ears normal, TM's normal bilaterally, EAC's normal, mastoids normal and no periauricular adenopathy Mouth: Yes Normal oral and palatal mucosa present, Yes lip normal, Yes tongue normal and Yes moist mucous membranes Throat: posterior oropharynx normal, tonsils normal, uvula midline and no uvular edema Eyes: General: appearance normal, both eyes and all related structures Alignment and Position: alignment normal Neck: Neck: normal visual inspection, full ROM, no lymphadenopathy and no meningeal signs Chest: Chest palpation & inspection: normal inspection of the chest Resp: Effort & Inspection: normal respiratory effort and able to speak in complete sentences Auscultation: clear to auscultation bilaterally, no crackles, no rales, no rhonchi and no wheezes Cardio: Rate: regular rate Skin: General skin exam: normal color and no rashes or lesions noted Neuro: General: patient oriented x3, gait normal, moves all extremities and no meningeal signs Cognition (Neuro): normal cognition Speech: normal speech Gait exam (Neuro): Normal gait present Extrem: General: normal to inspection, full ROM, capillary refill normal and normal gait Psych: Appearance: grossly normal and well kempt Mental Status: mental status grossly normal Speech and movement: Normal speech and movement present and Clear speech present Affect: normal affect Attitude: cooperative Course Course Level of Care: Express Care Visit Vital Signs Vital signs: Vital Signs Oxygen Delivery Room Air 06/12/24 16:15 Temperature 97.6 F 06/12/24 16:21 Pulse Rate 95 06/12/24 16:21 Respiratory Rate 16 06/12/24 16:21 Blood Pressure 118/63 06/12/24 16:21 Pulse Oximetry 98 06/12/24 16:21 Oxygen Delivery Room Air 06/12/24 16:15 Reviewed Transfer Transfered to: [facility] ( [facility]) Transfer rationale: spoke with Pablito DAVIDSON, Dr. Herrmann patient with concerns for RSV, flu, continued lightheadedness that is progressively getting worse. Unable to do complete workup, sending for higher level Medical Decision Making MDM Narrative Medical decision making narrative: Patient sitting comfortably in exam room. Nontoxic, vitals stable. Patient in no acute distress Patient presents forOf care lightheadedness, exposure to flu and RSV. Also reports cough. offered to do flu and COVID test, Patient declined. Unable to do RSV testing here due to patient's age. Patient is , not doing a chest x-ray, sending for higher level of care due to concern for dizziness, possible dehydration transfer instructions reviewed with patient and significant other to go directly to maternity at [facility]. All questions have been answered, and the patient deny any further questions. Some parts of this dictation were generated by voice recognition software and may contain typographical and/or grammatical inaccuracies. Differential Diagnosis Differential Diagnosis: flu, COVID, RSV, pneumonia, dehydration Medical Records Medical records reviewed: Yes I reviewed the external patient's medical records. Vital Signs Vital Signs: Vital Signs Oxygen Delivery Room Air 06/12/24 16:15 Temperature 97.6 F 06/12/24 16:21 Pulse Rate 95 06/12/24 16:21 Respiratory Rate 16 06/12/24 16:21 Blood Pressure 118/63 06/12/24 16:21 Pulse Oximetry 98 06/12/24 16:21 Oxygen Delivery Room Air 06/12/24 16:15 Reviewed Lab Data Lab results reviewed: Yes I reviewed the patient's lab results. Labs: Reviewed Critical Care Time Critical Care Time Critical Care Time: No Discharge Plan Discharge Clinical Impression: Upper respiratory infection Patient Disposition: Acute Care Hospital Condition: Stable Patient Language: Citizen Of [place] Prescriptions: No Action cholecalciferol (vitamin D3) 125 mcg (5,000 unit) capsule 125 mcg PO DAILY prenat.vits,brenda,[id number] Tablet 1 tablet PO DAILY Follow-up/Referrals: UNKNOWN,DOCTOR [Non-Staff] -
[2024-06-12 16:21] VITALS: BP 118/63; PULSE 95; RESP 16; TEMP 36.4; O2SAT 98
== END 2024-06-12 16:40 | disposition short-term general hospital (02) ==
PROVIDERS: Emergency Provider Nurse Practitioner
DX: O99.519 Diseases of the respiratory system complicating pregnancy, unspecified trimester (principal); Z3A.00 Weeks of gestation of pregnancy not specified; J06.9 Acute upper respiratory infection, unspecified
CPT/HCPCS: 99212; G0463